=== PATIENT | female | born 2000 | race African-American/Black ===

== ENCOUNTER 2021-11-23 14:40 | Emergency (ER) | payer BC ==
[~2021-11-23] VITALS: Ht 165 cm; Wt 87.0 kg
[2021-11-23 14:45] VITALS: BP 123/87
--- NOTE | 2021-11-23 15:10 | ED General ---
General Chief Complaint: Fever-Adult/Adol Stated Complaint: SORE THROAT,FEVER Nursing Triage Note: ARRIVED VIA AMB WITH COMPLAINTS OF FEVER, COUGH, SORE THROAT SINCE YESTERDAY. Source of Information: Patient Exam Limitations: No Limitations (MIHN RAMOS) History of Present Illness Date Seen by Provider: Nov 23, 2021 Time Seen by Provider: 15:03 Initial Comments Anjelica Hughes is a 21 yo female who presents for sore throat and fever. Pt has seasonal allergies, but no other significant medical hx. She states she started having sore throat, ear pain, SHAIKH, loss of appetite, chills, nasal congestion, cough and intermittent chest pain since yesterday. Pt reports she has tried theraflu and cough drops, which helped, but nyquil and benadryl provided no relief. She normally takes cetirizine for her seasonal allergies, but has been out the last two days. She denies dysuria, frequency, abdominal pain, N/V/D or constipation. Timing/Duration: 24 Hours Severity: Mild Modifying Factors: improves with Medication Associated Systoms: Cough, Fever/Chills, Headaches, Loss of Appetite, Shortness of Air (MINH RAMOS STUDENT) Allergies and Home Medications Allergies Coded Allergies: No Known Drug Allergies (Unverified , 11/23/21) Patient Home Medication List Home Medication List Reviewed: Yes (ARCHIE PERSON MD) Review of Systems Review of Systems Constitutional: chills; No fever EENTM: nose congestion, throat pain; No blurred vision, No vision loss Respiratory: cough, short of breath Cardiovascular: chest pain; No palpitations Gastrointestinal: No abdominal pain, No constipation, No diarrhea, No nausea, No vomiting Genitourinary: No dysuria, No frequency Musculoskeletal: No back pain, No muscle pain Skin: No lesions, No lumps, No rash Psychiatric/Neurological: Headache; Denies Numbness, Denies Weakness Hematologic/Lymphatic: No Symptoms Reported Immunological/Allergic: no symptoms reported (MINH RAMOS) Past Ynnazef-Ypcfeq-Edmnve Hx Patient Social History Smoking Status: Never a Smoker Substance use?: No Alcohol Use?: No (MINH RAMOS) Physical Exam Vital Signs Vital Signs - First Documented 11/23/21 14:45 Temp 36.8 Pulse 106 Resp 16 B/P (MAP) 123/87 (99) Pulse Ox 97 O2 Delivery Room Air (ARCHIE PERSON MD) Vital Signs Capillary Refill : Less Than 3 Seconds (MINH RAMOS MED STUDENT) Height, Weight, BMI Height: '" Weight: lbs. oz. kg; 31.00 BMI Method: General Appearance: No Apparent Distress, WD/WN Eyes: Bilateral Eye Normal Inspection, Bilateral Eye PERRL, Bilateral Eye EOMI HEENT: PERRL/EOMI, Pharyngeal Erythema, TM Abnormal (L) (fluid present ), TM Abnormal (R) (fluid present) Neck: Full Range of Motion, Normal Inspection Respiratory: Chest Non Tender, Lungs Clear, Normal Breath Sounds Cardiovascular: No Murmur, Tachycardia Gastrointestinal: Normal Bowel Sounds, Non Tender, Soft Extremity: Non Tender, No Pedal Edema Neurologic/Psychiatric: Alert, Oriented x3, Normal Mood/Affect Skin: Normal Color, Warm/Dry (MINH RAMOS STUDENT) Progress/Results/Core Measures Suspected Sepsis SIRS Temperature: Pulse: 106 Respiratory Rate: 16 Blood Pressure 123 /87 Mean: 99 (MINH RAMOS Moondo STUDENT) Results/Orders Lab Results Laboratory Tests Test 11/23/21 14:47 Range/Units Influenza Type A (RT-PCR) Not Detected Not Detecte Influenza Type B (RT-PCR) Not Detected Not Detecte SARS-CoV-2 RNA (RT-PCR) Detected H Not Detecte (ARCHIE PERSON MD) My Orders Orders - ARCHIE PERSON MD Covid 19 Inhouse Test (11/23/21 15:07) Ekg Tracing (11/23/21 15:07) Influenza A And B By Pcr (11/23/21 15:07) Isolation Central Supply Req (11/23/21 15:07) (ARCHIE PERSON MD) Vital Signs/I&O 11/23/21 14:45 Temp 36.8 Pulse 106 Resp 16 B/P (MAP) 123/87 (99) Pulse Ox 97 O2 Delivery Room Air (ARCHIE PERSON MD) Vital Signs/I&O Capillary Refill : Less Than 3 Seconds (MINH RAMOS MED STUDENT) Blood Pressure Mean: 99 Progress Note : Time: 16:08 Progress Note 21yo female with Covid sx, SOB, cough, sore throat, subj fevers, chills. onset 2 days ago. Neg PMH. non smoker. Exam +mild pharyngeal erythema. no sig LAD. Lungs clear, RR. othewise benign exam. PLan: quarantine per protocol. Supportive care. hydration, NSAIDS/ tylenol. Return precautions given. (ARCHIE PERSON MD) ECG Initial ECG Impression Date: Nov 23, 2021 Initial ECG Impression Time: 15:20 Initial ECG Rate: 104 Initial ECG Rhythm: S.Tach Initial ECG Intervals: Normal Initial ECG Impression: Nonspecific Changes (T wave abnormality) Initial ECG Comparisson: No Previous ECG Available (MINH RAMOS MED STUDENT) Departure Impression Primary Impression: COVID Disposition: 01 HOME, SELF-CARE Condition: Stable Departure-Patient Inst. Decision time for Depature: 16:10 (ARCHIE PERSON MD) Referrals: [facility],LOCAL PHYSICIAN (PCP) Primary Care Physician Patient Instructions: COVID-19 ED Add. Discharge Instructions: Take mucinex for sinus congestion as needed It is safe to continue the theraflu and cough drops as needed. Drink plenty of water to stay hydrated If you have worsening of symptoms, increasing chest pain or severe shortness of breath return to the ER. All discharge instructions reviewed with patient and/or family. Voiced understanding. Verification and Attestation of Medical Student E/M Service A medical student performed and documented this service in my presence. I reviewed and verified all information documented by the medical student and made modifications to such information, when appropriate. I personally performed the physical exam and medical decision making. Archie Person, Nov 23, 2021,16:11 (ARCHIE PERSON MD) MINH RAMOS MED STUDENT Nov 23, 2021 15:10 ARCHIE PERSON MD Nov 23, 2021 16:11
== END 2021-11-23 16:18 | disposition home or self-care (01) ==
LOC: ER 14:44
DX: U07.1 COVID-19 (principal)
CPT/HCPCS: 87636; 93005